=== PATIENT | male | born 1955 | race Caucasian/White ===

== ENCOUNTER → 2019-09-22 11:10 | Outpatient (CLI) | payer MEDICARE, BC | END | disposition home or self-care (01) | LOC: D.MRI 11:10 | PROVIDERS: ATTEND Orthopaedic Surgery | DX: M75.42 Impingement syndrome of left shoulder (principal) ==

== ENCOUNTER 2019-10-06 05:20 | Day surgery (SDC) | payer MEDICARE, BC ==
[2019-10-03 11:02] LABS: HEMATOCRIT 46.7 % (42.0-54.0); MCHC 34.3 g/dL (31.0-37.0); MCV 84.8 fL (80.0-100.0); MEAN PLATELET VOLUME 9.8 fL (7.4-10.4); RBC 5.51 10x6/uL (4.20-6.10); RDW 12.7 % (11.5-14.5); WBC 6.6 10x3/uL (4.8-10.8)
[2019-10-03 11:10] LABS: CALC OSMOLALITY 276 mosm/kg (275-300); CALCIUM 9.2 mg/dL (8.5-10.1); CARBON DIOXIDE 29.4 mmol/L (21.0-32.0); CHLORIDE - SERUM 100 mmol/L (98-107); GLUCOSE 124 mg/dL (74-106); POTASSIUM - SERUM 4.5 mmol/L (3.5-5.1); SODIUM 137 mmol/L (136-145); UREA NITROGEN 19 mg/dL (7-18); eGFR NON AFRICAN AMERICAN 80 mL/min (90-120)
[~2019-10-06] VITALS: Ht 180.3 cm; Wt 113.4 kg
[~2019-10-06 05:20] MED LIST: GLUCOPHAGE500 MG PO; LISINOPRIL40 MG PO; OZEMPIC SQ; PRAVACHOL20 MG PO
[2019-10-06 06:13] VITALS: BP 137/70; Ht 180.3 cm; Wt 113.4 kg
[2019-10-06] MEDS ORDERED: HYDROCODON-ACE1 EA10 PO (08:26)
--- NOTE | 2019-10-06 15:09 | NUR ---
1010 DRESSED AWAKE & ALERT. GIVEN DISCHARGE INSTRUCTIONS INCLUDING RX: NORCO 10MG, MED REC, RTC APPT., [facility] D/C INSTRUCTIONS, DR. RETANA'S SHOULDER ARTHROSCOPY D/C ISNTRUCTIONS & PENDULUM EXERCISE SHEET, PERIPHERAL NERVE BLOCK, HOME INSTRUCTIONS. PT VOICED UNDERSTANDING. TO PRIVATE CAR PER WHEELCHAIR BY STAFF. HOME WITH . Julissa GOLDSMITH R.N.
--- NOTE | 2019-10-08 09:27 | OP ---
PATIENT NAME: MARISOL SALEEM MEDICAL RECORD: [id number] :53 LOCATION:[facility] ADMISSION DATE: SURGEON: DEONTE RETANA MD DATE OF OPERATION: 10/06/2019 PREOPERATIVE DIAGNOSIS: Impingement syndrome of the left shoulder. POSTOPERATIVE DIAGNOSIS: Impingement syndrome of the left shoulder plus severe biceps tendinitis. PROCEDURES: 1. Left shoulder arthroscopic biceps tenotomy. 2. Left shoulder arthroscopic distal clavicle excision done through separate incision - 1 cm. 3. Arthroscopic subacromial decompression, acromioplasty and bursectomy. SURGEON: Deonte Retana MD ANESTHESIA: General. INTRAOPERATIVE COMPLICATIONS: None. SUMMARY OF PATHOLOGIC FINDINGS: Consistent with the preoperative diagnosis, the patient had substantial superficial rotator cuff tearing; however, none of which was greater than 50% and did not require formal fixation. 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 Severe biceps tendonitis was noted. OPERATIVE SUMMARY IN DETAIL: After obtaining the appropriate preoperative orthopedic surgery consent as well as anesthetic consultation, evaluation and clearance, the patient was brought to the operating room and placed on the operating table in a supine position. After adequate general laryngeal mask airway was administered, the patient was placed in right lateral decubitus position. All pressure points were well padded. He was held firmly to the operating table using vacuum pack suction system. Left upper extremity and shoulder were then prepped and draped in routine sterile fashion. The arm was held in the Arthrex traction boom at 30 degrees of forward flexion, 30 degrees of abduction, 10 pounds of traction laterally. At this time, the appropriate timeout was taken and agreed upon by all given the patient's unique identifiers. Arthroscopy was then established this in the glenohumeral joint from the posterior portal. Anterior portal was established in the anterior safe interval under direct arthroscopic visualization. The patient had a paucity of arthritis, no articular side rotator cuff tearing was seen; however, the patient had severe biceps tendinitis. Biceps tendon was released at the bicipital labral junction. Attention was turned to the subacromial space. While at subacromial space, the patient had some substantial excoriation of the distal tip of the acromion as well as a coracoacromial ligament. [place] tissue ablation system was utilized to denude the undersurface of the acromion of all soft tissue elements and release the coracoacromial ligament. A 5-0 barrel bur was then used to perform acromioplasty at the level of acromioclavicular joint. Next, under direct arthroscopic visualization through a separate anterior portal, distal clavicle was excised for 1 cm. Having completed this, attention was turned to removal of the subacromial bursa as well as evaluate the rotator cuff, which was found to have a superficial tearing, but no full thickness OPERATIVE REPORT [id number] MARISOL SALEEM tearing. Having completed this, arthroscopy portals were closed in routine interrupted fashion using 4-0 Prolene. Sterile dressings were applied. The patient was awakened, taken to recovery room in stable condition. All final needle and sponge counts were correct. TRANSINT:[id number] Voice Confirmation ID: [id number] DOCUMENT ID: [id number] LAINEY HANSEN, DEONTE WOLFF at 0927 CC: [id number] DICTATION DATE: 10/07/19 1257 RUBBER TRIMMER: 10/07/19 1624 [facility] 10/06/19 [facility] [address] [place] [address]
== END 2019-10-06 10:10 | disposition home or self-care (01) ==
LOC: D.PAN 05:20 → D.OPS 07:30 → D.PAN 10:10
PROVIDERS: Anesthesiology; ATTEND Orthopaedic Surgery
DX: M75.42 Impingement syndrome of left shoulder (principal); M75.22 Bicipital tendinitis, left shoulder; E11.9 Type 2 diabetes mellitus without complications; I10 Essential (primary) hypertension; Z79.84 Long term (current) use of oral hypoglycemic drugs